=== PATIENT | male | born 1975 | race African-American/Black ===

== ENCOUNTER 2024-05-22 21:38 | Emergency (ER) | payer OTHER ==
[~2024-05-22] VITALS: Ht 180.3 cm; Wt 138.0 kg
[2024-05-22 22:10] VITALS: TEMP 98.2; O2SAT 98
[2024-05-23 03:26] VITALS: BP 141/86; PULSE 95; RESP 18
[2024-05-23] MEDS: KETOROLAC 30MG/ML VIAL IM ONE (03:26)
[2024-05-23] MEDS ORDERED: NAPR-420 MT (03:49)
[2024-05-23] MEDS ORDERED: METH4TAB95 MT (03:49)
== END 2024-05-23 05:11 | disposition home or self-care (01) ==
LOC: ER 21:38
DX: M25.572 Pain in left ankle and joints of left foot (principal); I50.9 Heart failure, unspecified; Z13.9 Encounter for screening, unspecified
CPT/HCPCS: 99285; 93971; 73610; 96372; J1885; Z7610